=== PATIENT | female | born 1990 | race Caucasian/White ===

== ENCOUNTER → 2016-09-30 | Outpatient (CLI) | payer MEDICAID ==
[2016-09-30 16:32] LABS: ABSOLUTE BASOPHILS # (AUTO) 0.1 10^3/uL (0.0-0.2); ABSOLUTE EOSINOPHILS # (AUTO) 0.2 10^3/uL (0.0-0.6); ABSOLUTE LYMPHOCYTES (AUTO) 2.4 10^3/uL (0.5-4.7); ABSOLUTE MONOCYTES (AUTO) 0.9 10^3/uL (0.1-1.4); ABSOLUTE NEUT (AUTO) 7.9 10^3/uL (1.7-8.2); BASOPHILS % (AUTO) 0.6 % (0-2); EOSINOPHILS % (AUTO) 1.5 % (0-6); HEMATOCRIT 38.6 % (36.0-47.0); HEMOGLOBIN 12.9 g/dL (12.0-15.5); HGB HCT DIFFERENCE 0.1; LYMPHOCYTES % (AUTO) 21.3 % (13-45); MEAN CORPUSCULAR HEMOGLOBIN 29.2 pg (27.0-33.4); MEAN CORPUSCULAR HGB CONC 33.3 g/dL (32.0-36.0); MEAN CORPUSCULAR VOLUME 88 fl (80-97); MONOCYTES % (AUTO) 7.5 % (3-13); RED BLOOD COUNT 4.41 10^6/uL (3.72-5.28); RED CELL DISTRIBUTION WIDTH 15.8 % (11.5-14.0); SEGMENTED NEUTROPHILS % (AUTO) 69.1 % (42-78); WHITE BLOOD COUNT 11.4 10^3/uL (4.0-10.5)
[2016-10-02 14:12] LABS: VITAMIN D 25-HYDROXY 33.8 ng/mL (30.0-100.0)
== END ==
LOC: OD 15:45
PROVIDERS: ATTEND Nurse Practitioner Primary Care
DX: O09.291 Supervision of pregnancy with other poor reproductive or obstetric history, first trimester (principal); O99.280 Endocrine, nutritional and metabolic diseases complicating pregnancy, unspecified trimester; E03.9 Hypothyroidism, unspecified; Z3A.00 Weeks of gestation of pregnancy not specified
CPT/HCPCS: 36415; 82306; 84443; 85025; 86592; 86762; 86850; 86900; 86901; 87340

== ENCOUNTER 2019-05-30 00:24 | Emergency (ER) | payer MEDICAID ==
[2019-05-30] MEDS ORDERED: MORPHINE SULFATE 10 MG/ML INJ IV ONE ×2 (01:06→03:32)
[2019-05-30] MEDS ORDERED: ONDANSETRON HCL INJ/PF 4 MG/2 ML SDV IV ONE (01:06)
--- NOTE | 2019-05-30 01:11 | ER Document Report ---
ED GI/ - General Chief Complaint: Abdominal Pain Stated Complaint: ABDOMINAL PAIN/HAD BABY TWO WEEKS AGO Time Seen by Provider: 05/30/19 00:45 Primary Care Provider: BRIGID KLEIN NP [Primary Care Provider] - Follow up as needed Mode of Arrival: Ambulatory Information source: Patient Notes: Patient is a 29-year-old female presenting to the emergency department chief complaint of left-sided abdominal pain and flank pain that began at 1030 this evening. Patient reports she was feeling fine prior to this pain onset. She reports it is severe sharp stabbing pain. She does have a history of kidney stones, hypertension and hypothyroidism. She reports she had a normal bowel movement today. Denies the use of any narcotic pain medications. She is 2 weeks post vaginal delivery, she states this was uncomplicated. Tonight she did have 2 episodes of vomiting, denies any diarrhea or fevers. TRAVEL OUTSIDE OF THE [place] IN LAST 30 DAYS: No - Related Data Allergies/Adverse Reactions: amoxicillin trihydrate [From Augmentin] Allergy (Verified 02/13/16 08:43) nickel Allergy (Verified 02/13/16 08:43) Generalized rash potassium clavulanate [From Augmentin] Allergy (Verified 02/13/16 08:43) Past Medical History - General Information source: Patient - Social History Smoking Status: Former Smoker Frequency of alcohol use: None Drug Abuse: None Family History: Reviewed & Not Pertinent Patient has suicidal ideation: No Patient has homicidal ideation: No - Past Medical History Cardiac Medical History: Reports: Hx Hypertension Endocrine Medical History: Reports: Hx Hypothyroidism Renal/ Medical History: Reports: Hx Kidney Stones Psychiatric Medical History: Denies: Hx Depression Past Surgical History: Reports: Hx Oral Surgery - [place] teeth - Immunizations Hx Diphtheria, Pertussis, Tetanus Vaccination: Yes Review of Systems - Review of Systems Constitutional: No symptoms reported EENT: No symptoms reported Cardiovascular: No symptoms reported Respiratory: No symptoms reported Gastrointestinal: See HPI Genitourinary: See HPI Female Genitourinary: No symptoms reported Musculoskeletal: No symptoms reported Skin: No symptoms reported Hematologic/Lymphatic: No symptoms reported Neurological/Psychological: No symptoms reported Physical Exam - Vital signs Vitals: Pulse Resp BP Pulse Ox 62 16 132/82 H 99 05/30/19 00:31 05/30/19 00:31 05/30/19 00:31 05/30/19 00:31 - Notes Notes: PHYSICAL EXAMINATION: GENERAL: Well-appearing, well-nourished and in mild distress. HEAD: Atraumatic, normocephalic. EYES: Pupils equal round and reactive to light, extraocular movements intact, conjunctiva are normal. ENT: Nares patent, oropharynx clear without exudates. Moist mucous membranes. NECK: Normal range of motion, supple without lymphadenopathy LUNGS: Breath sounds clear to auscultation bilaterally and equal. No wheezes rales or rhonchi. HEART: Regular rate and rhythm without murmurs ABDOMEN: Soft, mild tenderness to the left lower quadrant, nondistended abdomen. No guarding, no rebound. No masses appreciated. Female : Left CVA tenderness present. Musculoskeletal: Normal range of motion, no pitting or edema. No cyanosis. NEUROLOGICAL: Cranial nerves grossly intact. Normal speech, normal gait. Normal sensory, motor exams PSYCH: Normal mood, normal affect. SKIN: Warm, Dry, normal turgor, no rashes or lesions noted. Course - Re-evaluation Re-evalutation: Laboratory 05/30/19 05/30/19 05/30/19 00:57 00:57 01:19 WBC 14.1 H RBC 4.13 Hgb 13.1 Hct 39.4 MCV 96 MCH 31.8 MCHC 33.3 RDW 14.6 H Plt Count 194 Lymph % (Auto) 14.1 [place] % (Auto) 5.8 Eos % (Auto) 1.7 Baso % (Auto) 0.9 Absolute Neuts (auto) 11.0 H Absolute Lymphs (auto) 2.0 Absolute Monos (auto) 0.8 Absolute Eos (auto) 0.2 Absolute Basos (auto) 0.1 Seg Neutrophils % 77.5 Sodium Potassium Chloride Carbon Dioxide Anion Gap BUN Creatinine Est GFR ( Amer) Est GFR (MDRD) Non-Af Glucose Calcium Total Bilirubin Direct Bilirubin Neonat Total Bilirubin Neonat Direct Bilirubin Neonat Indirect Bili AST ALT Alkaline Phosphatase Total Protein Albumin Lipase Urine Color Cancelled YELLOW Urine Appearance Cancelled TURBID Urine pH Cancelled 5.0 Ur Specific [place] Cancelled 1.026 Urine Protein Cancelled 30 H Urine Glucose (UA) Cancelled NEGATIVE Urine Ketones Cancelled NEGATIVE Urine Blood Cancelled MODERATE H Urine Nitrite Cancelled Urine Nitrite (Reflex) NEGATIVE Urine Bilirubin Cancelled NEGATIVE Urine Urobilinogen Cancelled NEGATIVE Ur Leukocyte Esterase Cancelled Leukocyte Esterase Rfl SMALL H Urine WBC (Auto) Cancelled Urine RBC (Auto) Cancelled U Hyaline Cast (Auto) Cancelled Urine Bacteria (Auto) Cancelled 1+ Urine Red Cell Clumps Cancelled Urine WBC (Reflex) 20 Urine WBC Clumps Cancelled Squamous Epi Cells Auto Cancelled 13 U Non-Squamous Epis Auto Cancelled Calcium Carbonate Cryst Cancelled Calcium Phosphate Cryst Cancelled Calcium Oxalate Cr Auto Cancelled Leucine Crystals Cancelled Cystine Crystals Cancelled Uric Acid Cryst (Auto) Cancelled Triple Phos Cryst (Auto) Cancelled Tyrosine Crystals Cancelled Amorphous Sediment Auto Cancelled Cellular Casts Cancelled Epithelial Casts (Auto) Cancelled Fatty Casts Cancelled Granular Casts (Auto) Cancelled Waxy Casts (Auto) Cancelled Broad Casts Cancelled RBC Casts (Auto) Cancelled WBC Casts (Auto) Cancelled Urine Mucus (Auto) Cancelled MANY U Trichomonas (Auto) Cancelled Ur Yeast w Hyphae Cancelled Urine Yeast (Budding) Cancelled Urine Ascorbic Acid Cancelled NEGATIVE Urine HCG, Qual NEGATIVE 05/30/19 01:19 WBC RBC Hgb Hct MCV MCH MCHC RDW Plt Count Lymph % (Auto) [place] % (Auto) Eos % (Auto) Baso % (Auto) Absolute Neuts (auto) Absolute Lymphs (auto) Absolute Monos (auto) Absolute Eos (auto) Absolute Basos (auto) Seg Neutrophils % Sodium 140.0 Potassium 4.3 Chloride 107 Carbon Dioxide 21 L Anion Gap 12 BUN 15 Creatinine 0.84 Est GFR ( Amer) > 60 Est GFR (MDRD) Non-Af > 60 Glucose 120 H Calcium 9.8 Total Bilirubin 0.4 Direct Bilirubin 0.1 Neonat Total Bilirubin Not Reportable Neonat Direct Bilirubin Not Reportable Neonat Indirect Bili Not Reportable AST 40 H ALT 37 Alkaline Phosphatase 100 Total Protein 7.1 Albumin 4.1 Lipase 130.3 Urine Color Urine Appearance Urine pH Ur Specific [place] Urine Protein Urine Glucose (UA) Urine Ketones Urine Blood Urine Nitrite Urine Nitrite (Reflex) Urine Bilirubin Urine Urobilinogen Ur Leukocyte Esterase Leukocyte Esterase Rfl Urine WBC (Auto) Urine RBC (Auto) U Hyaline Cast (Auto) Urine Bacteria (Auto) Urine Red Cell Clumps Urine WBC (Reflex) Urine WBC Clumps Squamous Epi Cells Auto U Non-Squamous Epis Auto Calcium Carbonate Cryst Calcium Phosphate Cryst Calcium Oxalate Cr Auto Leucine Crystals Cystine Crystals Uric Acid Cryst (Auto) Triple Phos Cryst (Auto) Tyrosine Crystals Amorphous Sediment Auto Cellular Casts Epithelial Casts (Auto) Fatty Casts Granular Casts (Auto) Waxy Casts (Auto) Broad Casts RBC Casts (Auto) WBC Casts (Auto) Urine Mucus (Auto) U Trichomonas (Auto) Ur Yeast w Hyphae Urine Yeast (Budding) Urine Ascorbic Acid Urine HCG, Qual Abdomen/Pelvis CT 05/30/19 02:08 IMPRESSION: 1. Moderate left hydronephrosis and hydroureter to the level of a 5-6 mm left UVJ stone. 2. Small nonobstructing left renal stone. Patient with 5 to 6 mm left UVJ stone. Nonobstructing, mild left hydronephrosis and hydroureter but no perinephric stranding. Patient reports she feels much improved after administration of medications here in the emergency department as well as IV fluids. She was counseled on the expectations moving forward and passing a kidney stone. She was counseled on the possible need to follow-up with a urologist if this does not pass easily. She verbalizes understanding and agreement with this plan. The patient's emergency department workup and current diagnosis were explained to the patient and or family. Follow-up instructions were provided. Medications if prescribed were discussed. Instructions for when to return to the emergency department including specific worrisome symptoms were discussed with the patient and/or family. - Vital Signs Vital signs: Temp Pulse Resp BP Pulse Ox 62 16 132/82 H 99 05/30/19 00:31 05/30/19 00:31 05/30/19 00:31 05/30/19 00:31 - Laboratory Result Diagrams: 05/30/19 01:19 05/30/19 01:19 Laboratory results interpreted by me: 05/30/19 05/30/19 05/30/19 00:57 01:19 01:19 WBC 14.1 H RDW 14.6 H Absolute Neuts (auto) 11.0 H Carbon Dioxide 21 L Glucose 120 H AST 40 H Urine Protein 30 H Urine Blood MODERATE H Leukocyte Esterase Rfl SMALL H Discharge - Discharge Clinical Impression: Kidney stone Condition: Stable Disposition: HOME, SELF-CARE Additional Instructions: Your symptoms should improve over the course of the next one week. If you c ontinue to have pain for greater than one week or your pain is not controlled with the pain medications that you have been sent home with you need to return to the emergency department. Please also return if you develop fever, persistent vomiting, or any other symptoms that are concerning to you. You should take ibuprofen 600 mg every 6 hours and use the percocet as prescribed only for pain not controlled by ibuprofen. You are also been sent home with a medication called Flomax to help pass the stone. You've been given Zofran to assist with nausea. Please follow-up with urology in the next 2-3 days. Prescriptions: Tamsulosin HCl [Flomax] 0.4 mg PO DAILY #7 cap.er.24h Oxycodone HCl/Acetaminophen [Percocet 5-325 mg Tablet] 1 tab PO Q4H PRN #10 tablet PRN Reason: Ondansetron [Zofran Odt 4 mg Tablet] 1 tab PO Q4H PRN #15 tab.rapdis PRN Reason: For Nausea/Vomiting Referrals: KHLOE SPARROW MD [NO LOCAL MD] - Follow up as needed
[2019-05-30 01:45] LABS: ABSOLUTE BASOPHILS # (AUTO) 0.1 10^3/uL (0.0-0.2); ABSOLUTE EOSINOPHILS # (AUTO) 0.2 10^3/uL (0.0-0.6); ABSOLUTE MONOCYTES (AUTO) 0.8 10^3/uL (0.1-1.4); BASOPHILS % (AUTO) 0.9 % (0-2); EOSINOPHILS % (AUTO) 1.7 % (0-6); HEMATOCRIT 39.4 % (36.0-47.0); HEMOGLOBIN 13.1 g/dL (12.0-15.5); LYMPHOCYTES % (AUTO) 14.1 % (13-45); MEAN CORPUSCULAR HEMOGLOBIN 31.8 pg (27.0-33.4); MEAN CORPUSCULAR HGB CONC 33.3 g/dL (32.0-36.0); MEAN CORPUSCULAR VOLUME 96 fl (80-97); MONOCYTES % (AUTO) 5.8 % (3-13); PLATELET COUNT 194 10^3/uL (150-450); RED BLOOD COUNT 4.13 10^6/uL (3.72-5.28); RED CELL DISTRIBUTION WIDTH 14.6 % (11.5-14.0); SEGMENTED NEUTROPHILS % (AUTO) 77.5 % (42-78); TOTAL CELLS COUNTED % (AUTO) 100 %; WHITE BLOOD COUNT 14.1 10^3/uL (4.0-10.5)
[2019-05-30 01:56] LABS: ALBUMIN 4.1 g/dL (3.5-5.0); ALKALINE PHOSPHATASE 100 U/L (38-126); ANION GAP 12 (5-19); ASPARTATE AMINO TRANSFERASE 40 U/L (14-36); BILIRUBIN,DIRECT 0.1 mg/dL (0.0-0.4); BILIRUBIN,TOTAL 0.4 mg/dL (0.2-1.3); BLOOD UREA NITROGEN 15 mg/dL (7-20); CALCIUM 9.8 mg/dL (8.4-10.2); CARBON DIOXIDE 21 mmol/L (22-30); CHLORIDE 107 mmol/L (98-107); GLUCOSE 120 mg/dL (75-110); POTASSIUM 4.3 mmol/L (3.6-5.0); TOTAL PROTEIN 7.1 g/dL (6.3-8.2)
--- NOTE | 2019-05-30 02:54 | RADIOLOGY REPORT (SQ) ---
CT abdomen and pelvis without contrast on 05/30/2019 at 2:28 AM CLINICAL INDICATION: Left-sided back pain, two weeks TECHNIQUE: Multiple axial images are obtained throughout the abdomen and pelvis without the administration of contrast. This exam was performed according to our departmental dose-optimization program, which includes automated exposure control, adjustment of the mA and/or kV according to patient size and/or use of iterative reconstruction technique. Total DLP is 821.67 mGy*cm. COMPARISON: None FINDINGS: Abdomen: The lung bases are clear. There is moderate left hydronephrosis and hydroureter to the level of a 5-6 mm slightly irregular left UVJ stone . There is a small nonobstructing stone in the upper pole of the left kidney. There are no other renal or ureteral stones. The unenhanced solid abdominal organs are otherwise unremarkable. There is no abdominal adenopathy. There is no free fluid or free air within the abdomen. The abdominal portion of the GI tract is unremarkable. Pelvis: Pelvic organs appear unremarkable by CT. There is no pelvic adenopathy. The pelvic portion of the GI tract including the appendix is unremarkable. No bony abnormality is noted. IMPRESSION: 1. Moderate left hydronephrosis and hydroureter to the level of a 5-6 mm left UVJ stone. 2. Small nonobstructing left renal stone.
[2019-05-30 03:24] LABS: APPEARANCE,URINE TURBID; BILIRUBIN,URINE NEGATIVE (NEGATIVE); COLOR,URINE YELLOW; GLUCOSE, URINE NEGATIVE (NEGATIVE); KETONES,URINE NEGATIVE (NEGATIVE); PROTEIN,URINE 30 mg/dL (NEGATIVE); URINE SPECIFIC GRAVITY 1.026; UROBILINOGEN,URINE NEGATIVE mg/dL (<2.0)
[2019-05-30] MEDS ORDERED: KETOROLAC TROMETHAMINE INJ/PF 30 MG/1 ML SDV IV ONE (03:25)
[2019-05-30] MEDS ORDERED: NORMAL SALINE 1000 ML 1,000 ML IV ONE (03:25)
[2019-05-30] MEDS ORDERED: PROMETHAZINE HCL INJ 25 MG/1 ML VIAL IM ONE (03:32)
[2019-05-30] MEDS ORDERED: ONDANSETRON ODT 4 MG TAB (6 TAB/ER DISP) PO PRN (04:25)
[2019-05-30] MEDS ORDERED: HYDROCODONE/ACETAMINOPHEN 5-325 MG (6 TAB/ER DISP) PO PRN (04:25)
[2019-05-30] MEDS ORDERED: TAMSULOSIN HCL 0.4 MG CAP.SR.24H PO ONE (04:25)
[2019-05-30 04:59] VITALS: BP 135/81
== END 2019-05-30 04:59 | disposition home or self-care (01) ==
LOC: ER 00:24
DX: O99.89 Other specified diseases and conditions complicating pregnancy, childbirth and the puerperium (principal); R10.814 Left lower quadrant abdominal tenderness; N20.0 Calculus of kidney; R10.9 Unspecified abdominal pain; R11.10 Vomiting, unspecified; Z87.891 Personal history of nicotine dependence; I10 Essential (primary) hypertension
CPT/HCPCS: 36415; 83690; 85025; 81025; 80053; 81001; 74176; J1885; J2270; J3490; J2550; J2405; J7030; 87086; 87088; 96361; 96374; 96375; 96376; 99284

== ENCOUNTER → 2020-04-29 | Outpatient (CLI) | payer MEDICAID ==
--- NOTE | 2020-04-29 17:26 | EKG REPORT ---
SEVERITY:- BORDERLINE ECG - SINUS TACHYCARDIA PROBABLE LEFT ATRIAL ABNORMALITY : Confirmed by: Mariah Norman 29-Apr-2020 17:25:50
[2020-04-29 18:11] LABS: ANION GAP 9 (5-19); BLOOD UREA NITROGEN 9 mg/dL (7-20); CALCIUM 9.3 mg/dL (8.4-10.2); CARBON DIOXIDE 21 mmol/L (22-30); CHLORIDE 107 mmol/L (98-107); GLUCOSE 98 mg/dL (75-110); POTASSIUM 4.4 mmol/L (3.6-5.0)
--- NOTE | 2020-04-30 12:34 | RADIOLOGY REPORT (SQ) ---
EXAM DESCRIPTION: CHEST PA/LATERAL IMAGES COMPLETED DATE/TIME: 04/29/2020 5:09 pm REASON FOR STUDY: PRE-OP COMPARISON: None. EXAM PARAMETERS: NUMBER OF VIEWS: two views TECHNIQUE: Digital Frontal and Lateral radiographic views of the chest acquired. RADIATION DOSE: NA LIMITATIONS: none FINDINGS: LUNGS AND PLEURA: No opacities, masses or pneumothorax. No pleural effusion. MEDIASTINUM AND HILAR STRUCTURES: No masses or contour abnormalities. HEART AND VASCULAR STRUCTURES: Heart normal size. No evidence for failure. BONES: No acute findings. HARDWARE: None in the chest. OTHER: No other significant finding. IMPRESSION: NO SIGNIFICANT RADIOGRAPHIC FINDING IN THE CHEST. TECHNICAL DOCUMENTATION: JOB ID: [id number] 2010 [employer]- All Rights Reserved Reading location - IP/workstation name: [email or web address]
[2020-04-30 13:54] LABS: ABSOLUTE BASOPHILS # (AUTO) 0.1 10^3/uL (0.0-0.2); ABSOLUTE EOSINOPHILS # (AUTO) 0.3 10^3/uL (0.0-0.6); ABSOLUTE LYMPHOCYTES (AUTO) 2.3 10^3/uL (0.5-4.7); ABSOLUTE MONOCYTES (AUTO) 0.5 10^3/uL (0.1-1.4); ABSOLUTE NEUT (AUTO) 5.3 10^3/uL (1.7-8.2); EOSINOPHILS % (AUTO) 3.2 % (0-6); HEMATOCRIT 43.3 % (36.0-47.0); HEMOGLOBIN 14.8 g/dL (12.0-15.5); MEAN CORPUSCULAR HEMOGLOBIN 30.7 pg (27.0-33.4); MEAN CORPUSCULAR HGB CONC 34.1 g/dL (32.0-36.0); MEAN CORPUSCULAR VOLUME 90 fl (80-97); MONOCYTES % (AUTO) 6.2 % (3-13); PLATELET COUNT 180 10^3/uL (150-450); RED BLOOD COUNT 4.81 10^6/uL (3.72-5.28); RED CELL DISTRIBUTION WIDTH 13.7 % (11.5-14.0); SEGMENTED NEUTROPHILS % (AUTO) 62.6 % (42-78); TOTAL CELLS COUNTED % (AUTO) 100 %; WHITE BLOOD COUNT 8.5 10^3/uL (4.0-10.5)
== END ==
LOC: OD 16:07
PROVIDERS: ATTEND Orthopaedic Surgery
DX: Z01.810 Encounter for preprocedural cardiovascular examination (principal); Z01.811 Encounter for preprocedural respiratory examination; Z01.812 Encounter for preprocedural laboratory examination; M67.432 Ganglion, left wrist; F17.200 Nicotine dependence, unspecified, uncomplicated; Z68.41 Body mass index [BMI] 40.0-44.9, adult
CPT/HCPCS: 36415; 71046; 80048; 85025; 93005; 93010

== ENCOUNTER 2020-05-25 20:43 | Emergency (ER) | payer MEDICAID ==
--- NOTE | 2020-05-25 21:01 | ER Document Report ---
ED Medical Screen (RME) - General Stated Complaint: POSSIBLE CYST, INNER LEFT LEG Time Seen by Provider: 05/25/20 20:56 Primary Care Provider: ISABELLE BERRIOS DO [Primary Care Provider] - Follow up as needed Mode of Arrival: Ambulatory Information source: Patient Notes: HPI; 30-year-old female presents to the emergency room with a questionable abscess to her left groin/left labia area for the past week. States she is tried to "pop it" without success. Has been using warm compresses. No history of previous abscesses with incision and drainage. Denies urinary symptoms. Denies fevers. Denies vaginal discharge. PE: Alert and oriented x3. Mild distress noted. Lungs: Clear to auscultation without rales, rhonchi, wheezes. Heart: Tachycardic without murmurs, rubs, gallops. I have greeted and performed a rapid initial assessment of this patient. A comprehensive ED assessment and evaluation of the patient, analysis of test results and completion of the medical decision making process will be conducted by additional ED providers. I have specifically instructed the patient or family members with the patient to immediately return to any nursing staff should anything change in the patient's condition or with their chief complaint. TRAVEL OUTSIDE OF THE [place] IN LAST 30 DAYS: No - Related Data Allergies/Adverse Reactions: amoxicillin trihydrate [From Augmentin] Allergy (Verified 02/13/16 08:43) nickel Allergy (Verified 02/13/16 08:43) Generalized rash potassium clavulanate [From Augmentin] Allergy (Verified 02/13/16 08:43) Home Medications: norco Past Medical History - Social History Chew tobacco use (# tins/day): No Frequency of alcohol use: None Drug Abuse: None - Past Medical History Cardiac Medical History: Reports: Hx Hypertension Endocrine Medical History: Reports: Hx Hypothyroidism Renal/ Medical History: Reports: Hx Kidney Stones Psychiatric Medical History: Reports: Hx Bipolar Disorder Denies: Hx Depression Past Surgical History: Reports: Hx Oral Surgery - [place] teeth - Immunizations Hx Diphtheria, Pertussis, Tetanus Vaccination: Yes Physical Exam - Vital signs Vitals: Temp Pulse Resp BP Pulse Ox 99.5 F 117 H 16 145/95 H 97 05/25/20 20:47 05/25/20 20:47 05/25/20 20:47 05/25/20 20:47 05/25/20 20:47 Course - Vital Signs Vital signs: Temp Pulse Resp BP Pulse Ox 99.5 F 117 H 16 145/95 H 97 05/25/20 20:57 05/25/20 20:47 05/25/20 20:47 05/25/20 20:47 05/25/20 20:47 Doctor's Discharge - Discharge Referrals: ISABELLE BERRIOS DO [Primary Care Provider] - Follow up as needed
[2020-05-25] MEDS ORDERED: SULFAMETHOXAZOLE/TRIMETHOPRIM 800-160 MG TABLET PO ONE (21:34)
--- NOTE | 2020-05-25 21:34 | ER Document Report ---
ED General - General Chief Complaint: Abscess Stated Complaint: POSSIBLE CYST, INNER LEFT LEG Time Seen by Provider: 05/25/20 20:56 Primary Care Provider: ISABELLE BERRIOS DO [Primary Care Provider] - Follow up as needed Mode of Arrival: Ambulatory TRAVEL OUTSIDE OF THE [place] IN LAST 30 DAYS: No - HPI Notes: Patient is a 30-year-old female who presents to the emergency department for evaluation of a cyst versus abscess in her left upper leg/groin region. She states she believed it could just be an ingrown hair. It is been present for about a week. She has had an ingrown hair in that area in the past. She has tried to squeeze it, states it has only gotten bigger. No fevers or chills. No nausea or vomiting. She is eating and drinking normally. No vaginal discharge, no other sores in the area. She states that she always has a high heart rate. She states her resting heart rate is in the 90s to about 110. It seems to be higher when she goes to the doctor's office. She had her TSH checked last month. - Related Data Allergies/Adverse Reactions: amoxicillin trihydrate [From Augmentin] Allergy (Verified 02/13/16 08:43) nickel Allergy (Verified 02/13/16 08:43) Generalized rash potassium clavulanate [From Augmentin] Allergy (Verified 02/13/16 08:43) Home Medications: norco Past Medical History - General Information source: Patient - Social History Smoking Status: Current Every Day Smoker Chew tobacco use (# tins/day): No Frequency of alcohol use: None Drug Abuse: None Family History: Reviewed & Not Pertinent Patient has homicidal ideation: No - Past Medical History Cardiac Medical History: Reports: Hx Hypertension Endocrine Medical History: 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 Renal/ Medical History: Reports: Hx Kidney Stones Psychiatric Medical History: Reports: Hx Bipolar Disorder Denies: Hx Depression Past Surgical History: Reports: Hx Oral Surgery - [place] teeth - Immunizations Hx Diphtheria, Pertussis, Tetanus Vaccination: Yes Review of Systems - Review of Systems Constitutional: No symptoms reported EENT: No symptoms reported Cardiovascular: No symptoms reported Respiratory: No symptoms reported Gastrointestinal: No symptoms reported Genitourinary: No symptoms reported Female Genitourinary: No symptoms reported Musculoskeletal: No symptoms reported Skin: See HPI Neurological/Psychological: No symptoms reported Physical Exam - Vital signs Vitals: Temp Pulse Resp BP Pulse Ox 99.5 F 117 H 16 145/95 H 97 05/25/20 20:47 05/25/20 20:47 05/25/20 20:47 05/25/20 20:47 05/25/20 20:47 - Notes Notes: Is a 30-year-old female who appears her stated age, no acute distress. Head is normocephalic and atraumatic, pupils are equal round, reactive to light. Oral mucosa is moist. Heart regular rate and rhythm, lungs are clear to auscultation bilaterally. Abdomen soft, nontender, normoactive bowel sounds. Examination of the area in question was performed with AMRITA Smith, present in the room. Normal external genitalia. On the left inguinal region, just lateral to the vaginal introitus on the leg itself, is a 2 cm firm and rubbery palpable lesion, consistent with either deep ingrown hair/abscess versus lymphadenopathy. There is some overlying erythema and mild calor noted. No other regional lym phadenopathy is appreciated in the groin, axilla, anterior or posterior neck. Course - Re-evaluation Re-evalutation: 05/25/20 21:39 Patient presents to the emergency department for evaluation. She was initially seen through triage and brought back given that the area of her chief complaint was a sensitive region to be evaluated in the triage lucio. At this point I am unclear as to whether or not this is an early deep abscess or in fact a local lymphadenitis. Either way, I do believe that treatment with oral antibiotics is appropriate initially. I explained to the patient that if this still persists, she might need ultrasound and further evaluation to determine whether or not this is in fact lymph nodes and if she has any other enlarged lymph nodes that are concerning. She voiced understanding. Otherwise she will be given a dose of Bactrim here. I will send her home with a prescription for Bactrim. She is to follow-up with her primary care doctor in 1 to 2 weeks, dorothy ramirez's advised, keep the area clean, do not squeeze or put pressure on the area. She is to return to the ED with worsening or new concerning symptoms of any sort. - Vital Signs Vital signs: Temp Pulse Resp BP Pulse Ox 99.5 F 117 H 16 145/95 H 97 05/25/20 20:57 05/25/20 20:47 05/25/20 20:47 05/25/20 20:47 05/25/20 20:47 Discharge - Discharge Clinical Impression: Cellulitis Qualifiers: Site of cellulitis of extremity: lower extremity Laterality: left Condition: Stable Disposition: HOME, SELF-CARE Instructions: Cellulitis ([facility]), Trimethoprim-Sulfa ([facility]) Additional Instructions: It is unclear at this time as to whether or not the palpable area is a lymph node or an early abscess. I did not appreciate any fluctuance, or indication to drain it at this time. Keep the area clean with soap and water. Sits baths. Take all the antibiotic as prescribed. Follow-up with your primary doctor in 1 to 2 weeks. You may require an ultrasound of the size of this lesion does not change. If you develop fevers, vomiting, increased redness, drainage, or any other new or concerning symptoms, please return immediately to the emergency department for reevaluation. Prescriptions: Sulfamethoxazole/Trimethoprim [Bactrim Ds Tablet] 1 each PO BID #14 tablet
[2020-05-25 21:57] VITALS: BP 144/92
== END 2020-05-25 22:14 | disposition home or self-care (01) ==
LOC: ER 20:43
DX: L03.116 Cellulitis of left lower limb (principal); F17.200 Nicotine dependence, unspecified, uncomplicated; I10 Essential (primary) hypertension; Z79.899 Other long term (current) drug therapy; Z88.0 Allergy status to penicillin; Z91.048 Other nonmedicinal substance allergy status
CPT/HCPCS: 99283; J3490